=== PATIENT | female | born 1965 | race African-American/Black ===

== ENCOUNTER 2016-08-07 05:49 | Day surgery (SDC) | payer OTHER ==
--- NOTE | 2016-08-06 22:15 | Pre-op HX & Phy Repo 2 SIG ---
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 BRIEF NOTE: This is a first [facility] admission for Jacey Kaminski, who is a very nice 51-year-old lady, who complained of sudden decrease in vision in the right eye about 4 months ago. On examination, she was found to have a fairly long-standing retinal detachment with multiple peripheral breaks and early proliferative vitreal retinopathy. She is admitted for repair. Her past ocular history is remarkable for moderate myopia. She has had no eye surgery in the past. PAST MEDICAL HISTORY: Remarkable for arthritis and hypertension. SOCIAL HISTORY: She is a nonsmoker. ALLERGIES: She has no allergies. PHYSICAL EXAMINATION: Best vision at the time of admission was counting fingers at 6 feet in the right eye and 20/60 in the left with pressures of 4 and 14. They are constricted visual veliz on the right. The anterior segment was benign with reasonably clear lens. The left anterior segment showed full veliz and normal structures. Fundus examination of the right eye showed a crowded optic disc with a 0.25 cup. There was total retinal detachment. An obvious break was seen and a patch of lattice degeneration at 10 o'clock with a suspicious area at 6. A was located inferior to the nerve. The macula was completely detached as well. The left fundus showed several areas of lattice degeneration with breaks, which had been recently lasered. The retina was attached. ASSESSMENT: Total retinal detachment, right eye. PLAN: The plan is to perform a pars plana vitrectomy with scleral buckling, membrane peeling, endo drainage, endolaser, and either a gas exchange for silicone oil depending on the circumstances. The risks and benefits of surgery were gone over the patient with potential infection, hemorrhage, glaucoma, and remote possibility of loss of the eye. The risk of anesthesia was discussed. The patient understands consents to the surgery, which will be performed on tomorrow morning. Uriel Hartman M.D. DR: SUNDAR JOB#: [id number] CC:
[2016-08-07] VITALS (9 sets, daily range): BP systolic 97–154; BP diastolic 39–75
[~2016-08-07] VITALS: Ht 175.3 cm; Wt 115.7 kg
[~2016-08-07 05:49] MED LIST: AMLODIPINE BESY10 MG ORAL; ATENOLOL50 MG ORAL; Cyclopentolate 1% Opth Sol ONE; Flurbiprofen 0.03% Opth Sol 2.5ml ONE; Gatifloxacin Opth Solution 0.5% ONE; NAPROXEN500 M2 ORAL; Phenylephrine 2.5% Op Soln ONE
[2016-08-07] MEDS ORDERED: Pred Forte 1% Opth Susp 1ml RIGHT EYE SCH (06:00)
[2016-08-07] MEDS: Flurbiprofen 0.03% Opth Sol 2.5ml RIGHT EYE SCH ×3 (06:21→06:50)
[2016-08-07] MEDS: Gatifloxacin Opth Solution 0.5% RIGHT EYE SCH ×3 (06:21→06:50)
[2016-08-07] MEDS: Phenylephrine 2.5% Op Soln RIGHT EYE SCH ×3 (06:21→06:50)
[2016-08-07] MEDS: Cyclopentolate 1% Opth Sol RIGHT EYE SCH ×3 (06:21→06:50)
[2016-08-07] MEDS ORDERED: LR 1000ml 1,000 ML IV SCH (06:25)
--- NOTE | 2016-08-07 06:34 | Anethesia Preoperative Eval ---
Anesthesia Pre-op PMH/ROS General Date of Evaluation: Aug 07, 2016 Time of Evaluation: 06:31 Anesthesiologist: adriana ASA Score: ASA 2 Mallampati Score Class I : Soft palate, uvula, fauces, pillars visible Class II: Soft palate, uvula, fauces visible Class III: Soft palate, base of uvula visible Class IV: Only hard plate visible Surgeon: mary lou Diagnosis: total retinal detachment Surgical Procedure: pars plana vitrectomy Social History: smoking - non smoker Family History: no anesthesia problems Allergies: Coded Allergies: No Known Allergies (Unverified , 08/06/16) Medications: see eMAR Past Medical History Pulmonary: Reports: other - sleep apnea Musculoskeletal/Integumentary: Reports: OA Other: obesity PSxH Narrative: laser tx left eye Anesthesia Pre-op Phys. Exam Physician Exam Last Vital Signs Date Time Temp Pulse Resp B/P Pulse Ox O2 Delivery O2 Flow Rate FiO2 08/07/16 06:26 98.2 60 20 154/75 100 Room Air Constitutional: NAD Neurologic: CN 2-12 intact Cardiovascular: RRR Respiratory: CTA Gastrointestinal: S/NT/ND Airway Exam Mallampati Score: Class II MO: full Neck: supple TMD: 2fb ROM: full Teeth: broken - left rear Anesthesia Pre-op A/P Labs Labs Test 08/07/16 06:05 08/07/16 06:25 Urine HCG, Qualitative Negative White Blood Count 6.8 K/UL (4.8-10.8) Red Blood Count 4.83 M/UL (4.20-5.40) Hemoglobin 15.0 G/DL (12.0-16.0) Hematocrit 43.7 % (37.0-47.0) Mean Corpuscular Volume 91 FL (80-99) Mean Corpuscular Hemoglobin 31.0 PG (27.0-31.0) Mean Corpuscular Hemoglobin Concent 34.3 G/DL (32.0-36.0) Red Cell Distribution Width 13.1 % (11.6-14.8) Platelet Count 329 K/UL (150-450) Mean Platelet Volume 6.0 FL (6.5-10.1) Neutrophils (%) (Auto) 59.0 % (45.0-75.0) Lymphocytes (%) (Auto) 28.5 % (20.0-45.0) Monocytes (%) (Auto) 10.2 % (1.0-10.0) Eosinophils (%) (Auto) 1.3 % (0.0-3.0) Basophils (%) (Auto) 1.0 % (0.0-2.0) Sodium Level 136 mEQ/L (135-145) Potassium Level 4.0 mEQ/L (3.4-4.9) Chloride Level 96 mEQ/L (98-107) Carbon Dioxide Level 24 mEQ/L (20-30) Anion Gap 16 (5-15) Blood Urea Nitrogen 9 mg/dL (7-23) Creatinine 0.8 mg/dL (0.5-0.9) Estimat Glomerular Filtration Rate > 60 mL/min (>60) Glucose Level 105 mg/dL (74-106) Calcium Level 8.7 mg/dL (8.6-10.2) Labs Test 08/07/16 06:05 08/07/16 06:25 Urine HCG, Qualitative Negative Urine Test Test 08/07/16 06:05 Urine HCG, Qualitative Pending Risk Assessment & Plan Assessment: total retinal detachment Plan: pars plana vitrectomy, possible sclera buckle Status Change Before Surgery: No Pre-Antibiotics Drug: SHELTON Mendoza Aug 07, 2016 06:34
[2016-08-07 06:37] LABS: EOSINOPHILS % (AUTO) 1.3 % (0.0-3.0); LYMPHOCYTES % (AUTO) 28.5 % (20.0-45.0); MEAN CORPUSCULAR HGB CONC 34.3 G/DL (32.0-36.0); MEAN CORPUSCULAR VOLUME 91 FL (80-99); MONOCYTES % (AUTO) 10.2 % (1.0-10.0); PLATELET COUNT 329 K/UL (150-450); RED BLOOD COUNT 4.83 M/UL (4.20-5.40); RED CELL DISTRIBUTION WIDTH 13.1 % (11.6-14.8); WHITE BLOOD COUNT 6.8 K/UL (4.8-10.8)
[2016-08-07] MEDS ORDERED: BSS 500ml btl ONE (06:46)
[2016-08-07] MEDS ORDERED: Kenalog-40 1ml Vial ONE (06:46)
[2016-08-07] MEDS ORDERED: Dexamethasone 4mg/ml vial ONE (06:47)
[2016-08-07] MEDS ORDERED: Kenalog-10 5ml Inj ONE (06:47)
[2016-08-07] MEDS ORDERED: Maxitrol Opth Oint 3.5gm ONE (06:47)
[2016-08-07] MEDS ORDERED: Tetracaine 0.5% Opth Soln ONE (06:47)
[2016-08-07] MEDS ORDERED: Povidone-Iodine 5% opth solution ONE (06:48)
[2016-08-07] MEDS ORDERED: EPINEPHrine 1mg/1ml Amp ONE (06:48)
[2016-08-07] MEDS ORDERED: Lidocaine 2% MPF 5ml Vial INJ ONE (06:48)
[2016-08-07] MEDS ORDERED: BSS 15ml BTL ONE (06:49)
[2016-08-07] MEDS ORDERED: Bupivacaine 0.75% 30ml vial INJ ONE (06:49)
[2016-08-07] MEDS ORDERED: Sodium Hyaluronate 10 mg/ml 0.85ml ONE (06:49)
[2016-08-07] MEDS ORDERED: ePHEDrine 50mg/ml Inj ONE (07:00)
[2016-08-07] MEDS ORDERED: Metoclopramide 10mg/2ml Inj ONE (07:00)
[2016-08-07] MEDS ORDERED: Phenylephrine 10mg/ml Vial ONE (07:00)
[2016-08-07] MEDS ORDERED: Solu-MEDROL 40mg Inj ONE (07:00)
[2016-08-07] MEDS ORDERED: Propofol 10mg/ml 20ml IV ONE (07:00)
[2016-08-07] MEDS ORDERED: LR 1000ml ONE (07:00)
[2016-08-07] MEDS ORDERED: NS Irrig 1000ml ONE (07:00)
[2016-08-07] MEDS ORDERED: Midazolam 2mg/2ml Inj ONE (07:00)
[2016-08-07] MEDS ORDERED: fentaNYL 100 mcg/2 mL IV ONE (07:00)
[2016-08-07] MEDS ORDERED: Glycopyrrolate 0.2mg/ml 1ml Vial ONE (07:00)
[2016-08-07] MEDS ORDERED: Sterile Water Irrig 1000ml IRRIG ONE (07:00)
[2016-08-07] MEDS ORDERED: Lidocaine 1% MPF 10mg/ml 5ml ONE (07:00)
[2016-08-07 07:10] LABS: ANION GAP 16 (5-15); CALCIUM 8.7 mg/dL (8.6-10.2); CARBON DIOXIDE 24 mEQ/L (20-30); CHLORIDE 96 mEQ/L (98-107); CREATININE 0.8 mg/dL (0.5-0.9); GLOMERULAR FILTRATION RATE > 60 mL/min (>60); HEMOLYSIS 110; SODIUM 136 mEQ/L (135-145)
--- NOTE | 2016-08-07 07:24 | Immediate Post-Op Evaluation ---
Immediate Post-Op Evalulation Immediate Post-Op Evalulation Procedure: pPars plana vitrectomy right eye sclera buckle Date of Evaluation: Aug 07, 2016 Time of Evaluation: 10:08 IV Fluids: lr 1150ml Blood Products: none Estimated Blood Loss: negligible Blood Pressure Systolic: 124 Blood Pressure Diastolic: 58 Pulse Rate: 60 Respiratory Rate: 18 O2 Sat by Pulse Oximetry: 100 Temperature (Fahrenheit): 97.0 Pain Score (1-10): 0 Nausea: No Vomiting: No Complications none Patient Status: awake, reacts, patent, extubated Hydration Status: adequate Drug: SHELTON Mendoza Aug 07, 2016 07:24
--- NOTE | 2016-08-07 07:56 | Pre-Procedure Note/Attestation ---
Pre-Procedure Note/Attestation Complete Prior to Procedure Planned Procedure: right Procedure Narrative: PPV, scleral buckle, membrane peel, endolaser, silicone oil R eye. Indications for Procedure Pre-Operative Diagnosis: total retinal detachment R eye Attestation I attest that I discussed the nature of the procedure; its benefits; risks and complications; and alternatives (and the risks and benefits of such alternatives ), prior to the procedure, with the patient (or the patient's legal home furnishings sales representative). I attest that, if there was a reasonable possibility of needing a blood transfusion, the patient (or the patient's legal home furnishings sales representative) was given the [facility] standardized written summary, pursuant to the [place]eshawn [place] Blood Safety Act ([place] Health and Safety Code # 1645, as amended). I attest that I re-evaluated the patient just prior to the surgery and that there has been no change in the patient's H&P, except as documented below: KAHLIL STEPHENS Aug 07, 2016 07:56
[2016-08-07] MEDS ORDERED: Neosporin Oph Soln 5ml Btl ONE (08:25)
[2016-08-07] MEDS ORDERED: LR 1000ml 1,000 ML IVLG SCH (08:58)
[2016-08-07] MEDS ORDERED: DiphenhydrAMINE 50mg/ml Inj IVP PRN (09:00)
[2016-08-07] MEDS ORDERED: Hydromorphone 0.5mg/0.5ml inj IVP PRN (09:00)
[2016-08-07] MEDS ORDERED: Midazolam 2mg/2ml Inj IVP PRN (09:00)
[2016-08-07] MEDS ORDERED: Atropine Inj 1mg/10ml Syr IV PRN (09:00)
[2016-08-07] MEDS ORDERED: Norco 5mg/325mg tab ORAL PRN (10:00)
--- NOTE | 2016-08-07 10:00 | Brief Operative Note ---
Immediate Post Operative Note Operative Note Chief Complaint: Loss of vision OD Pre-op Diagnosis: total retinal detachment R eye Procedure: PPV, Scleral buckle (240. 287, 70 sleeve), membrane peel, endolaser 1617 spots, endodrainage, silicone oil OD. EUA OS Post-op Diagnosis: same as pre-op Surgeon: mary lou Golf Superintendent: shiva Anesthesia: general Specimen: none Complications: none Condition: stable Estimated Blood Loss: none Drains: none Implant(s) used?: Yes - Scleral buckle, 240, 287, 70 KAHLIL STEPHENS Aug 07, 2016 10:00
--- NOTE | 2016-08-07 10:07 | 48 Hour Post Anesthesia Eval ---
Post Anesthesia Evaluation Procedure: pPars plana vitrectomy right eye sclera buckle Date of Evaluation: Aug 07, 2016 Time of Evaluation: 10:15 Blood Pressure Systolic: 124 - 58 0: 58 Pulse Rate: 75 Respiratory Rate: 18 Temperature (Fahrenheit): 97.0 O2 Sat by Pulse Oximetry: 100 Airway: patent Nausea: No Vomiting: No Pain Intensity: 0 Hydration Status: adequate Cardiopulmonary Status: stable Mental Status/LOC: patient returned to baseline Post-Anesthesia Complications: none Follow-up care needed: N/A SHELTON MERCADO Aug 07, 2016 10:07
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
--- NOTE | 2016-08-07 16:30 | Operative Note - Dictated ---
DATE OF OPERATION: 08/07/2016 PREOPERATIVE DIAGNOSIS: Total retinal detachment, right eye. POSTOPERATIVE DIAGNOSIS: Total retinal detachment, right eye. PROCEDURES PERFORMED: 1. Pars plana vitrectomy. 2. Scleral buckle. 3. Membrane peel. 4. Endodrainage. 5. Endolaser. 6. Silicone oil injection, right eye. SURGEON: Uriel Hartman M.D. LICENSED MORTICIAN: Jeff Juarez M.D. ANESTHESIA: LMA general. ANESTHESIOLOGIST: Soila Santana M.D. JUSTIFICATION FOR SURGERY: This 51-year-old lady, who is a high myope, noted diminished vision in the right eye several months ago. On examination, she was found to have a total retinal detachment with early PVR. BRIEF NOTE: The patient was brought to the operating room, placed on OR table in supine position. After a time-out was performed and agreed upon by the staff, general LMA anesthesia was induced by Dr. Santana. The patient was then prepped and draped in a normal manner. A lid speculum inserted into the right eye. A 360-degree peritomy was cut with relaxation incisions at the 3 o'clock and 9 o'clock positions. The muscles were isolated and turned on white and black ties. Examination with the indirect ophthalmoscope revealed two large tears inferior and nasally and areas of lattice degeneration with open breaks above. These areas were noted and preparation was made for scleral buckle. A 5-0 nylon mattress sutures were chosen and mattress sutures of the same material were placed in the inferior quadrant 6 mm apart encompassing the tears and 3 mm apart above encompassing the lattice. A 240 band was placed around the eye and secured with a 70 sleeve superonasally. A segment of 287 tire was then placed inferiorly beneath the inferior rectus muscle and the mattress sutures. These were sutured into position and all knots rotated posteriorly. The ends were trimmed slightly in order to allow adjustment later. Preparation was then made for the vitrectomy. Using the 23-gauge trocar system, cannulas were placed in all except inferonasal quadrant. Infusion secured inferotemporally. The infusion was subsequently moved to the superotemporal spot after noticing a tendency toward the migration beneath the choroid. With the instruments now in place, vitrectomy was begun posterior to the lens taking care to avoid contact. A central core vitrectomy was done followed by peripheral vitrectomy shaving the vitreous flush with the areas of the retinal tears. A large starfold was noted inferior and slightly nasally. A membrane pick was used to engage the membrane within the fold and intraocular forceps were used to remove the membrane with relaxation of the fold. At this juncture, it was elected to do a posterior drainage. Using Endodiathermy, diathermy spot was made directly nasal to the optic nerve. Through this spot, fluid was evacuated while air was injected into the eye. The retina was noted to flatten nicely. Choroidals were noted inferonasally and inferotemporally. These did not appear to have a negative effect on the surgical procedure. Endolaser was brought into the eye and a power of 0.3 sal and duration 0.2 seconds, a total of 1617 lesions were applied surrounding the large tears inferiorly and temporally and also surrounding the lattice degeneration of the quadrants. The posterior retinotomy was surrounded with three rows of laser. With the retina flat, silicone oil was injected, 5000 centistokes to roughly a 90% fill leaving a small air bubble and leaving the eye normotensive to soft. The instruments were removed and all sclerotomies were closed with 8-0 Vicryl suture. The remainder of the buckle was trimmed after a slight tightening to leave the moderate buckling effect. Conjunctiva and tenon's were then pulled up to secure 6-0 plain catgut. Additional anesthetic of Marcaine and Xylocaine were injected with a cannula in the sub-Tenon's and subconjunctival spaces. The eye was patched and shielded after instilling prednisolone, gatifloxacin, and Maxitrol. The patient was then examined 360 degrees in the opposite eye where laser had been previously placed. No dangerous pathology was noted and it was felt that no treatment was needed at this time, but the decision will be made later as to whether to place a prophylactic scleral buckle. Uriel Hartman M.D. DR: FITO JOB#: [id number] CC: Uriel Hartman M.D.; Fax#: [phone] Domingo
== END 2016-08-07 11:50 | disposition home or self-care (01) ==
LOC: SUR 05:49
DX: H33.41 Traction detachment of retina, right eye (principal); H52.11 Myopia, right eye; I10 Essential (primary) hypertension; K21.9 Gastro-esophageal reflux disease without esophagitis; R00.1 Bradycardia, unspecified; G47.30 Sleep apnea, unspecified; M17.9 Osteoarthritis of knee, unspecified; E66.9 Obesity, unspecified; Z68.37 Body mass index [BMI] 37.0-37.9, adult; I83.90 Asymptomatic varicose veins of unspecified lower extremity; Z87.19 Personal history of other diseases of the digestive system
CPT/HCPCS: 36415; 67113; 80048; 81025; 85025; 93005; J0171; J1100; J2250; J2370; J2405; J2704; J2765; J2920; J3010; J3301; J3470; J3490; J7120; 94003; 94150

== ENCOUNTER 2016-10-23 05:42 | Day surgery (SDC) | payer OTHER ==
--- NOTE | 2016-10-22 21:30 | Pre-op HX & Phy Repo 2 SIG ---
DATE OF ADMISSION: 10/23/2016 DATE OF SURGERY: 10/23/2016 PREOPERATIVE DIAGNOSES: 1. Status post retinal detachment repair with silicone oil, right eye. 2. 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 BRIEF NOTE: This is the second [facility] admission for this patient who is a very nice 51-year-old lady, who underwent a vitrectomy and scleral buckle. She underwent vitrectomy on the right eye with scleral buckle for a complicated retinal detachment on 08/07/2016. She has done well with complete resolution of the retinal detachment behind the silicone oil but is admitted for silicone oil removal. She also was noted to have peripheral lattice degeneration with round holes that was lasered by her primary physician but he suspects there might be areas that were unreachable and suggest additional treatment on that side. She therefore was admitted for vitrectomy with removal of silicone oil on the right and laser indirect ophthalmoscopy on the left. PAST MEDICAL HISTORY: Remarkable for arthritis and high blood pressure. She also has had issues with elevated pressure in the right eye postoperatively. She is currently on Combigan, Lumigan, and Diamox Sequels. Systemically, she takes amlodipine, atenolol, and naproxen. ALLERGIES: She has no known allergies. PHYSICAL EXAMINATION: Ophthalmic: Best vision at the time of admission was 20/200 in the right eye and 20/25 in the left with pressures of 14 and 15. The anterior segment on the right showed mild hyperemia and healed scleral buckle incision. The anterior chamber was deep and quiet. The left anterior segment was benign. Fundus examination of the right eye showed peripheral scleral buckle. There was treatment to retinal breaks at the 10 o'clock position and at 5:30 and 6:30. Subretinal fluid had resorbed. Treated retinotomy was noted nasal to the optic nerve. No evidence of macular pucker was seen and the nerve appeared benign and the nerve showed cupping at about the 0.5 level. The left fundus showed areas of peripheral lattice degeneration with open breaks and laser. There were areas temporally where the laser did not completely surround the anterior side of the lattice. The retina was all attached on this side otherwise with cup of about 0.4. ASSESSMENT: 1. Status post retinal detachment repair with silicone oil, right eye. 2. Lattice degeneration of holes, left eye. General physical examination will be updated by Dr. Ramirez. PLAN: The plan is to perform silicone oil removal on the right with endolaser and laser indirect ophthalmoscopy on the left. The risks and benefits of surgery have been gone over with the patient with potential infection, recurrent detachment, worsening of the glaucoma, cataract formation, remote possibility of loss of the eye, the risk of anesthesia was discussed. The patient understands and consents to the surgery, which will be performed tomorrow morning. Uriel Hartman M.D. DR: Deedee JOB#: [id number] CC:
[~2016-10-23] VITALS: Ht 175.3 cm; Wt 117.9 kg
[2016-10-23] VITALS (9 sets, daily range): BP systolic 120–137; BP diastolic 63–79
[~2016-10-23 05:42] MED LIST changes: +CHEWABLE-VITE1 EAC1 PO; -Gatifloxacin Opth Solution 0.5% ONE; +MULTIVITAMINS1 EAC2 ORAL; +Vigamox Opth Soln ONE
[2016-10-23] MEDS ORDERED: Phenylephrine 2.5% Op Soln RIGHT EYE SCH (06:00)
[2016-10-23] MEDS ORDERED: Cyclopentolate 1% Opth Sol RIGHT EYE SCH (06:00)
[2016-10-23] MEDS ORDERED: Vigamox Opth Soln RIGHT EYE SCH (06:00)
[2016-10-23] MEDS ORDERED: Flurbiprofen 0.03% Opth Sol 2.5ml RIGHT EYE SCH (06:00)
[2016-10-23] MEDS: Phenylephrine 2.5% Op Soln BOTH EYES SCH ×3 (06:27→06:46)
[2016-10-23] MEDS: Flurbiprofen 0.03% Opth Sol 2.5ml BOTH EYES SCH ×3 (06:27→06:46)
[2016-10-23] MEDS: Vigamox Opth Soln BOTH EYES SCH ×3 (06:28→06:46)
[2016-10-23] MEDS: Cyclopentolate 1% Opth Sol BOTH EYES SCH ×3 (06:28→06:46)
--- NOTE | 2016-10-23 06:39 | Pre-Procedure Note/Attestation ---
Pre-Procedure Note/Attestation Complete Prior to Procedure Planned Procedure: bilateral Procedure Narrative: !) PPV, silicone oil removal, endolaser R eye 2) Laser indirect ophthalmoscopy treatment to lattice and retinal tears L eye Indications for Procedure Pre-Operative Diagnosis: 1) s/p retinal detachment repair with silicone oil R eye 2) Lattice degeneration with retinal holes L eye Attestation I attest that I discussed the nature of the procedure; its benefits; risks and complications; and alternatives (and the risks and benefits of such alternatives ), prior to the procedure, with the patient (or the patient's legal automobile rental representative). I attest that, if there was a reasonable possibility of needing a blood transfusion, the patient (or the patient's legal automobile rental representative) was given the [place] [facility] standardized written summary, pursuant to the [place] Blood Safety Act ([place] Health and Safety Code # 1645, as amended). I attest that I re-evaluated the patient just prior to the surgery and that there has been no change in the patient's H&P, except as documented below: KAHLIL STEPHENS Oct 23, 2016 06:39
[2016-10-23 07:15] LABS: ANION GAP 15 (5-15); CALCIUM 8.8 mg/dL (8.6-10.2); CARBON DIOXIDE 17 mEQ/L (20-30); CHLORIDE 105 mEQ/L (98-107); CREATININE 0.7 mg/dL (0.5-0.9); GLOMERULAR FILTRATION RATE > 60 mL/min (>60); HEMOLYSIS 6; POTASSIUM 3.4 mEQ/L (3.4-4.9); SODIUM 137 mEQ/L (135-145)
[2016-10-23] MEDS ORDERED: Kenalog-40 1ml Vial ONE (07:16)
[2016-10-23] MEDS ORDERED: BSS 500ml btl ONE (07:16)
[2016-10-23] MEDS ORDERED: Pred Forte 1% Opth Susp 1ml ONE (07:17)
[2016-10-23] MEDS ORDERED: Tetracaine 0.5% Opth Soln ONE (07:17)
[2016-10-23] MEDS ORDERED: Maxitrol Opth Oint 3.5gm ONE (07:17)
[2016-10-23] MEDS ORDERED: Dexamethasone 4mg/ml vial ONE (07:17)
[2016-10-23] MEDS ORDERED: Lidocaine 2% MPF 5ml Vial INJ ONE (07:18)
[2016-10-23] MEDS ORDERED: Kenalog-10 5ml Inj ONE (07:18)
[2016-10-23] MEDS ORDERED: EPINEPHrine 1mg/1ml Amp ONE (07:18)
[2016-10-23] MEDS ORDERED: Triamcinolone 40mg/ml PF Vial ONE (07:19)
[2016-10-23] MEDS ORDERED: Sodium Hyaluronate 10 mg/ml 0.85ml ONE (07:19)
[2016-10-23] MEDS ORDERED: Bupivacaine 0.75% 30ml vial INJ ONE (07:19)
[2016-10-23] MEDS ORDERED: Povidone-Iodine 5% opth solution ONE (07:22)
[2016-10-23] MEDS ORDERED: BSS 15ml BTL ONE (07:22)
[2016-10-23 07:24] LABS: BASOPHILS % (AUTO) 1.1 % (0.0-2.0); EOSINOPHILS % (AUTO) 1.7 % (0.0-3.0); LYMPHOCYTES % (AUTO) 22.6 % (20.0-45.0); MEAN CORPUSCULAR HEMOGLOBIN 31.2 PG (27.0-31.0); MEAN CORPUSCULAR HGB CONC 33.8 G/DL (32.0-36.0); MEAN CORPUSCULAR VOLUME 92 FL (80-99); MEAN PLATELET VOLUME 5.9 FL (6.5-10.1); MONOCYTES % (AUTO) 7.3 % (1.0-10.0); NEUTROPHILS % (AUTO) 67.2 % (45.0-75.0); PLATELET COUNT 324 K/UL (150-450); WHITE BLOOD COUNT 7.9 K/UL (4.8-10.8)
[2016-10-23] MEDS ORDERED: Metoclopramide 10mg/2ml Inj ONE (07:30)
[2016-10-23] MEDS ORDERED: Sodium Chloride 10ml vial INJ ONE (07:30)
[2016-10-23] MEDS ORDERED: fentaNYL 100 mcg/2 mL IV ONE (07:30)
[2016-10-23] MEDS ORDERED: Midazolam 2mg/2ml Inj ONE (07:30)
[2016-10-23] MEDS ORDERED: Lidocaine 1% MPF 10mg/ml 5ml ONE (07:30)
[2016-10-23] MEDS ORDERED: NS Irrig 1000ml ONE (07:30)
[2016-10-23] MEDS ORDERED: LR 1000ml ONE (07:30)
[2016-10-23] MEDS ORDERED: Sterile Water Irrig 1000ml IRRIG ONE (07:30)
[2016-10-23] MEDS ORDERED: Propofol 200mg/20ml IV ONE (07:30)
[2016-10-23] MEDS ORDERED: ePHEDrine 50mg/ml Inj ONE (07:30)
--- NOTE | 2016-10-23 08:22 | Anethesia Preoperative Eval ---
Anesthesia Pre-op PMH/ROS General Date of Evaluation: Oct 23, 2016 Time of Evaluation: 08:20 Anesthesiologist: paul ASA Score: ASA 3 Mallampati Score Class I : Soft palate, uvula, fauces, pillars visible Class II: Soft palate, uvula, fauces visible Class III: Soft palate, base of uvula visible Class IV: Only hard plate visible Mallampati Classification: Class III Surgeon: mary lou Diagnosis: retinal detachment Surgical Procedure: vitrectomy Anesthesia History: none Family History: no anesthesia problems Allergies: Coded Allergies: No Known Allergies (Unverified , 08/06/16) Medications: see eMAR Past Medical History Cardiovascular: Reports: HTN Pulmonary: Reports: JAVED - > Gastrointestinal/Genitourinary: Denies: GERD, CRI, ESRD, other Neurologic/Psychiatric: Denies: dementia, CVA, depression/anxiety, TIA, other HEENT: Reports: other - retinal detachment Hematology/Immune: Denies: anemia, DVT, bleeding disorder, other Musculoskeletal/Integumentary: Denies: OA, RA, DJD, DDD, edema, other Other: obesity PSxH Narrative: vitrectomy in 08/03 Anesthesia Pre-op Phys. Exam Physician Exam Last Vital Signs Date Time Temp Pulse Resp B/P (MAP) Pulse Ox O2 Delivery O2 Flow Rate FiO2 10/23/16 06:33 98.5 58 18 135/77 100 Room Air Constitutional: NAD Neurologic: CN 2-12 intact Cardiovascular: RRR Respiratory: CTA Gastrointestinal: S/NT/ND Airway Exam Mallampati Score: Class III MO: full Neck: thick TMD: 2fb ROM: full Dentures: no upper, no lower Anesthesia Pre-op A/P Labs Hematology Test 10/23/16 06:05 White Blood Count 7.9 K/UL (4.8-10.8) Red Blood Count 4.30 M/UL (4.20-5.40) Hemoglobin 13.4 G/DL (12.0-16.0) Hematocrit 39.6 % (37.0-47.0) Mean Corpuscular Volume 92 FL (80-99) Mean Corpuscular Hemoglobin 31.2 PG (27.0-31.0) H Mean Corpuscular Hemoglobin Concent 33.8 G/DL (32.0-36.0) Red Cell Distribution Width 13.0 % (11.6-14.8) Platelet Count 324 K/UL (150-450) Mean Platelet Volume 5.9 FL (6.5-10.1) L Neutrophils (%) (Auto) 67.2 % (45.0-75.0) Lymphocytes (%) (Auto) 22.6 % (20.0-45.0) Monocytes (%) (Auto) 7.3 % (1.0-10.0) Eosinophils (%) (Auto) 1.7 % (0.0-3.0) Basophils (%) (Auto) 1.1 % (0.0-2.0) Chemistry Test 10/23/16 06:05 Sodium Level 137 mEQ/L (135-145) Potassium Level 3.4 mEQ/L (3.4-4.9) Chloride Level 105 mEQ/L (98-107) Carbon Dioxide Level 17 mEQ/L (20-30) L Anion Gap 15 (5-15) Blood Urea Nitrogen 13 mg/dL (7-23) Creatinine 0.7 mg/dL (0.5-0.9) Estimat Glomerular Filtration Rate > 60 mL/min (>60) Glucose Level 114 mg/dL (74-106) H Calcium Level 8.8 mg/dL (8.6-10.2) Urine Test Test 10/23/16 06:00 Urine HCG, Qualitative Negative Studies Pre-op Studies: EKG - sb Risk Assessment & Plan Plan: general Status Change Before Surgery: No Pre-Antibiotics Drug: declined SHAI KAMINSKI CRNA Oct 23, 2016 08:22
[2016-10-23] MEDS ORDERED: fentaNYL 100 mcg/2 mL IV PRN (08:30)
--- NOTE | 2016-10-23 09:37 | Brief Operative Note ---
Immediate Post Operative Note Operative Note Chief Complaint: Blurred vision R eye Pre-op Diagnosis: 1) s/p retinal detachment repair with silicone oil R eye 2) Lattice degeneration with retinal holes L eye Procedure: PPV, removal of silicone oil, endolaser 1106 spots, paracentesis OD Peripheral cryopexy OS Post-op Diagnosis: same as pre-op Surgeon: mary lou Protohistorian: valeriy Anesthesia: general Specimen: none Complications: none Condition: stable Fluids: none Estimated Blood Loss: none Drains: none Implant(s) used?: No KAHLIL STEPHENS Oct 23, 2016 09:37
--- NOTE | 2016-10-23 09:39 | Immediate Post-Op Evaluation ---
Immediate Post-Op Evalulation Immediate Post-Op Evalulation Procedure: vitrectomy Date of Evaluation: Oct 23, 2016 Time of Evaluation: 09:32 IV Fluids: 500 Blood Pressure Systolic: 137 Blood Pressure Diastolic: 77 Pulse Rate: 70 Respiratory Rate: 14 O2 Sat by Pulse Oximetry: 100 Temperature (Fahrenheit): 97.6 Nausea: No Vomiting: No Complications none Patient Status: awake, reacts, patent Hydration Status: adequate Drug: none TARRILLION,SHAI COCOA [employer] CLE[employer]ER Oct 23, 2016 09:39
[2016-10-23] MEDS ORDERED: Norco 5mg/325mg tab ORAL PRN (09:45)
--- NOTE | 2016-10-23 10:37 | 48 Hour Post Anesthesia Eval ---
Post Anesthesia Evaluation Procedure: vitrectomy Date of Evaluation: Oct 23, 2016 Time of Evaluation: 10:37 Blood Pressure Systolic: 133 0: 63 Pulse Rate: 67 Respiratory Rate: 14 O2 Sat by Pulse Oximetry: 100 Airway: patent Nausea: No Vomiting: No Hydration Status: adequate Cardiopulmonary Status: stable Mental Status/LOC: patient returned to baseline Post-Anesthesia Complications: none Follow-up care needed: N/A SHAI KAMINSKI CRNA Oct 23, 2016 10:37
--- NOTE | 2016-10-23 15:45 | Cardiology Report ---
APPROVED REPORT EKG Measurement Heart [id number] Sinus bradycardia Otherwise normal ECG
--- NOTE | 2016-10-23 20:02 | Operative Note - Dictated ---
DATE OF OPERATION: 10/23/2016 PREOPERATIVE DIAGNOSES: 1. Status post retinal detachment repair with silicone oil, right eye. 2. Lattice degeneration with peripheral holes, left eye. SURGEON: Uriel Hartman M.D. VOUCHER EXAMINER: None. ANESTHESIA: LMA general. ANESTHESIOLOGIST: Lolis REYES. PROCEDURES PERFORMED: 1. For the right eye, pars plana vitrectomy. 2. Removal of silicone oil. 3. Endolaser. 4. Paracentesis with removal of silicone oil. 5. Left eye was peripheral cryopexy to lattice and retinal holes. 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 She was admitted for removal of the silicone oil in the right eye, touch-up cryopexy or peripheral laser in the left. BRIEF NOTE: The patient was brought to the operating room and placed on OR table in supine position. After a time-out was performed and agreed upon by the staff and general LMA anesthesia induced by nurse Horner, retrobulbar and Van Lint blocks were given in the standard way. Due to a defective laser indirect, this portion of the procedure was abandoned and it was decided to do cryopexy to the left eye at the conclusion of the procedure. She was then prepped and draped in normal manner with a lid speculum inserted into the right eye. Using a 23-gauge trocar system, cannulas were placed all except infranasal quadrant. Infusion was secured inferotemporally. Using the silicone soil expert, silicone oil was removed through the superotemporal cannula. Small bubbles of oil in the anterior chamber were removed by making a paracentesis at the 10 o'clock position and evacuating with a 23-gauge cannula. The eye was examined posteriorly and it was felt that additional laser support was needed down below. The endolaser was brought to the eye and a power of 0.3 sal, duration 0.2 seconds, a total of 1106 lesions were applied surrounding the large tears down below on the crest of the buckle and also reinforcing the break that was found above. No problems were encountered. An air-fluid exchange was performed to remove remaining air bubbles and the eye was refilled with balanced salt solution. The cannulas were removed from the eye and each sclerotomy secured with a single knot of 8-0 Vicryl. Subconjunctival Decadron and gentamicin were then injected. Maxitrol ointment, atropine, Pred Forte, and moxifloxacin drops were instilled. The eye was patched and shielded. Attention was paid to the left eye where cryopexy was performed after scleral depression revealed at least three breaks in areas of lattice that did not have significant anterior support. This was done without difficulty with a total of from 6 to 8 lesions of cryo being applied. The patient was then extubated smoothly and taken to recovery in excellent condition. No complications. Uriel Hartman M.D. DR: FITO JOB#: [id number] CC: Uriel Hartman M.D.; Fax#: [phone] Juarez M.D. ; Fax#: [phone]
--- NOTE | 2016-10-23 20:17 | Pre-op HX & Phy Repo 2 SIG ---
DATE OF ADMISSION: 10/23/2016 Reason For Evaluation: I was asked by Dr. Uriel Hartman to see this 51-year-old female, who is going for elective surgery on both eyes. Left eye has retinal detachment and 00:59 procedure on the right eye. Please see history and physical by Dr. Uriel Hartman. The patient was evaluated and examined. Chart was reviewed. PAST MEDICAL HISTORY/REVIEW OF SYSTEMS: Remarkable for history of hypertension. No history of heart attack, chest pain, or palpitation. Denies history of respiratory problem. No history of asthma, bronchitis, or emphysema. Denies history of stomach or GI problem. No liver problem. No hepatitis. Denies history of diabetes. No renal failure. Denies history of thyroid problem. No history of anemia. PAST SURGICAL HISTORY: The patient has history of on the left eye on 08/10/2016. Please see old chart. CURRENT MEDICATIONS: Include atenolol, amlodipine, and multivitamins. ALLERGIES: Not known. FAMILY HISTORY: Mother from liver cirrhosis complication. Father from cancer of the lung. HABITS: Denies history of smoke or alcohol habits. No street drugs. PHYSICAL EXAMINATION: GENERAL: Alert, well-developed, well-nourished female in her 40s, in no acute distress. VITAL SIGNS: Blood pressure 135/77, temperature 97.5, heart rate 58 and regular, and O2 saturation 100% on room air. SKIN: Clear and warm. No open wounds or ulcer. No rashes. LYMPHATICS: Lymph nodes not enlarged. HEENT: Head normocephalic. Ears clear, no discharge. Nose clear, no discharge. Mouth clear and moist, no dentures, no discharge or ulceration. NECK: Supple. No jugular venous distention. Carotids artery +2. Trachea midline. CHEST: No deformity or asymmetry. LUNGS: Clear to auscultation and percussion. HEART: Sinus rhythm. No ectopy. No murmur. No S3 or S4. ABDOMEN: Soft, benign. Liver and spleen not enlarged. EXTREMITIES: No edema or varicose veins. No calf tenderness. NEUROLOGIC: No tremor. No nystagmus. DIAGNOSTIC DATA: ECG, sinus bradycardia, 56 per minute, otherwise normal ECG. IMPRESSION: 1. Retinal detachment, left eye. 2. Hypertension, controlled. 3. Sinus bradycardia. PLAN: Pars plana vitrectomy, 23G silicone oil removal of left eye per Dr. Uriel Hartman. CONCLUSION: The patient did not eat or drink from last night, 7 p.m. Vital signs stable. EKG is normal. The patient's condition optimized for surgery. Thank you very much, Dr. Hartman, for privilege to participate in presurgical care of this interesting patient. Akash Ramirez M.D. DR: MORAIMA JOB#: [id number] CC:
== END 2016-10-23 11:30 | disposition home or self-care (01) ==
LOC: SUR 05:42
DX: H35.342 Macular cyst, hole, or pseudohole, left eye (principal); I10 Essential (primary) hypertension; E66.9 Obesity, unspecified; H53.8 Other visual disturbances; H33.021 Retinal detachment with multiple breaks, right eye; Z68.38 Body mass index [BMI] 38.0-38.9, adult
CPT/HCPCS: 36415; 67015; 67101; 67108; 80048; 81025; 85025; 93005; J0171; J1100; J2250; J2405; J2704; J2765; J3010; J3470; J3490; J7120; 94003; 94150; J3300